=== PATIENT | female | born 1995 | race Caucasian/White ===

== ENCOUNTER 2016-06-16 11:55 | Outpatient (CLI) ==
[2015-12-03 03:26] VITALS: BMI 34.4
[2016-06-16 12:10] LABS: BASOPHILS % (AUTO) 0.3 % (0.0-3.0); EOSINOPHILS # (AUTO) 0.1 K/ul (0.0-0.7); EOSINOPHILS % (AUTO) 1.9 % (0.0-7.0); HEMATOCRIT 42.9 % (37.0-47.0); IMMATURE GRANULOCYTE % (AUTO) 0.1 % (0.0-5.0); LYMPHOCYTES % (AUTO) 29.7 (10.0-50.0); MEAN CORPUSCULAR HEMOGLOBIN 28.6 pg (27.0-31.0); MEAN CORPUSCULAR HGB CONC 32.6 (31.8-35.4); MEAN CORPUSCULAR VOLUME 87.7 fl (81.0-99.0); MONOCYTES # (AUTO) 0.4 K/uL (0.4-2.0); MONOCYTES % (AUTO) 5.1 (0-10); NEUTROPHILS # (AUTO) 4.3 K/ul (2.0-6.9); NEUTROPHILS % (AUTO) 62.9; PLATELET COUNT 259 10^3/uL (140-440); RED BLOOD COUNT 4.89 10^6/ul (4.20-5.40); WHITE BLOOD COUNT 6.81 K/ul (4.6-10.2)
[2016-06-16 12:50] LABS: ALBUMIN 3.5 g/dL (3.7-5.6); ANION GAP 15.5; BILIRUBIN,TOTAL 0.73 mg/dL (0.60-1.40); BUN/CREATININE RATIO 11.11; CALCIUM 9.2 mg/dL (8.2-10.2); CREATININE 0.72 mg/dL (0.60-1.30); POTASSIUM 4.5 mmol/L (3.5-5.10)
== END 2016-06-16 11:56 | disposition home or self-care (01) ==
LOC: LAB 11:55
PROVIDERS: ATTEND Emergency Medicine
DX: R42 Dizziness and giddiness (principal)
CPT/HCPCS: 36415; 80053; 84443; 85025

== ENCOUNTER 2017-02-02 09:59 | Outpatient (CLI) ==
[2015-12-03 03:26] VITALS: BMI 34.4
--- NOTE | 2017-02-02 11:34 | US ---
EXAM: Ultrasound abdomen complete. HISTORY: Left-sided abdominal pain TECHNIQUE: Ultrasound and limited doppler evaluation of the enitre abdomen was performed. COMPARISON: Abdominal ultrasound 07/20/2015 FINDINGS: The liver is increased in echogenicity and measures 16.5 cm in length. The portal vein is patent. The gallbladder has been removed. Common bile duct measures 0.8 cm in diameter. The pancr eas is unremarkable. The aorta and IVC are unremarkable. The spleen is normal in echogenicity and measures enlarged at 14 cm in length. The right kidney measures 10.6 x 4.1 x 4.7 cm with cortical thickness of 1.1 cm. There is normal ec hogenicity and Doppler flow. There is no visualized stone, cyst or hydronephrosis. The left kidney measures 10.0 x 3.7 x 4.3 cm with renal cortical thickness of 1.0 cm. There is nor mal echogenicity and color Doppler flow. There is no stone, cyst or hydronephrosis. IMPRESSION: 1. The spleen measures enlarged. 2. The gallbladder has been removed. 3. Increased echogenicity of the liver suggestive of hepatic steatosis.
== END 2017-02-02 10:00 | disposition home or self-care (01) ==
LOC: RAD 09:59
PROVIDERS: ATTEND Internal Medicine
DX: R10.12 Left upper quadrant pain (principal); R10.32 Left lower quadrant pain

== ENCOUNTER 2018-07-25 14:55 | Outpatient (CLI) ==
[2015-12-03 03:26] VITALS: BMI 34.4
--- NOTE | 2018-07-26 08:32 | MRI ---
EXAM: MRI lumbar spine without IV contrast. DATE: 25 July 2018. HISTORY: Low back pain. TECHNIQUE: Sagittal and axial T1W and T2W sequences of the lumbar spine along with sagittal IR and c oronal T2W sequences were obtained using 1.2 Eula magnet. No IV contrast. COMPARISON: Abnormal ultrasound 02 February 2017. FINDINGS: There are five [id number] lumbar vertebra. A 9 degrees leftward curvature of the lum bar spine is present, with the apex of curvature at L3-4. A 2 mm retrolisthesis of L4 relative to L5 and 2 mm retrolisthesis of L5 relative to S1 are observed. No other subluxation, acute fracture, os seous malignancy, or pars interarticularis defect is demonstrated. Lumbar vertebra are normal in hei ght. Bone marrow signal is normal. Disc desiccation without significant disc space narrowing is see n at L4-5. L5-S1 intervertebral disc is borderline vs slightly narrow in height. No acute sacral fr acture or stress reaction is evident. SI joints are unremarkable. Conus medullaris terminates at L1 . Visible spinal cord is normal. No retroperitoneal lymphadenopathy, paraspinal mass, or aortic aneurysm is detected. Paraspinal musc ulature is symmetric bilaterally. The visible portions of the liver, spleen, adrenal glands and kidn eys reveal no abnormality. Pancreatic head measures proximally 3.4 cm AP, and has a somewhat lobular contour superiorly. However, pancreas is not fully included in the scan plane. Visible bowel loops reveal no abnormality. Segmental analysis: T11-12: Normal. T12-L1: Normal. L1-2: Normal. L2-3: Minor posterior to foraminal disc bulge and dorsal epidural fat cause mild central canal steno sis and minor/mild bilateral foraminal encroachment. L3-4: Minor posterior to foraminal disc bulge, dorsal epidural fat, and minor facet arthropathy caus e moderate central canal stenosis and minor/mild bilateral foraminal stenoses. L4-5: Small concentric disc bulge, superimposed midline disc protrusion (3.3 mm AP x 12 mm transvers e) and minor facet arthropathy cause marked central canal stenosis, moderate right foraminal stenosis , and mild/moderate left foraminal stenosis. L5-S1: Minor retrolisthesis of L5, pseudodisc bulge, and minor facet arthropathy cause moderate cent ral canal stenosis and minor left foraminal encroachment. IMPRESSIONS: 1. Lumbar spine minor leftward curvature, minor facet arthropathy, and multilevel DDD. 2. Multilevel central stenoses ( L2-3: Mild. L3-4: Moderate. L4-5: Marked. L5-S1: Moderate). 3. Multilevel lumbar foraminal stenoses, especially bilateral L4-5. Unexpected findin. Pancreatic head is prominent in AP dimension ( 3.4 cm) and somewhat lobular. Correlation with clinical symptoms is recommended. Dedicated CT scan or MRI of the pancreas without/ with IV contrast is recommended.
== END 2018-07-25 14:56 | disposition home or self-care (01) ==
LOC: RAD 14:55
PROVIDERS: ATTEND Internal Medicine
DX: M54.5 Low back pain (principal)

== ENCOUNTER 2018-07-31 08:05 | Outpatient (CLI) ==
[2015-12-03 03:26] VITALS: BMI 34.4
--- NOTE | 2018-08-01 13:16 | MRI ---
EXAM: MRI abdomen without and with contrast/MRCP HISTORY: Lobular pancreas, prominent pancreatic head TECHNIQUE: Multiplanar, multisequence without and following the administration of intravenous Dotare m, 20 mL using a dynamic postcontrast enhanced protocol. MRCP is acquired with 3-D volume rendered i mages of the biliary tree. COMPARISON: MRI lumbar spine from 07/25/2018 and abdominal sonogram from 02/02/2017 FINDINGS: The heart size is normal. No pericardial or pleural effusions are appreciated. There is diffuse loss of signal within the hepatic parenchyma on the [id number] images as compared to the in-phase images. No hepatic masses are evident. The portal and hepatic veins are patent. Th e gallbladder is surgically absent. There is no biliary dilatation. The common bile duct is approxi mately 2.6 mm in diameter and is free of intraluminal filling defects. No pancreatic divisum is evid ent. The pancreas has normal signal and enhancement. No pancreatic masses are evident. The adrenal glands are normal. The spleen has normal signal. The spleen is mildly enlarged up to 13.8 cm. The kidneys have normal size and signal intensity. The ureters have normal caliber. The abdominal a cristian has normal caliber and flow signal. The visible intestines have normal signal caliber. No lymp hadenopathy or ascites are evident. The bone marrow signal intensity is normal. IMPRESSION: 1. Diffuse hepatic steatosis. 2. Previous cholecystectomy without biliary dilatation. 3. Normal pancreas. 4. Mild splenomegaly (13.7 cm).
== END 2018-07-31 08:06 | disposition home or self-care (01) ==
LOC: RAD 08:05
PROVIDERS: ATTEND Internal Medicine
DX: K86.2 Cyst of pancreas (principal); K86.89 Other specified diseases of pancreas
CPT/HCPCS: 36415; 82565

== ENCOUNTER 2018-08-16 13:00 | Outpatient (RCR) ==
[2015-12-03 03:26] VITALS: BMI 34.4
--- NOTE | 2018-08-09 15:32 | RS.OPPTEV2 ---
Date of Note: 08/08/18 Visit #: 1 Number of visits approved by Insurance: n/a Date of Evaluation: 08/08/18 Payer Source: Insurance Surgery Performed?: No Treatment Diagnosis: low back pain with radiculopathy History of Condition/Mechanism of Injury:: pt with hx of back pain for a few years. No definite injury. Prior Level of Function.....Patient was independent with: ADL's, Self Care, Caregiving, Ambulation/Mobility, Community Integration/Access Level of Function: pt is not currently working Functional Limitations: Sleep, Lifting, Bending, Squatting, Ambulation, Community Access/Integration Current Subjective/complaints:: pt reports pain began getting worse a few months ago. States pain keeps her awake at night. Treatment Side (optional): N/A *Precautions: n/a Medical History Medical History: Hypertension Surgical History: Tonsillectomy Surgical History Comments:: ankle sx x 3 on L Smoking Status: Never smoker Diagnostic Testing/Imaging:: MRI 07/25/18: lumbar spine minor leftward curvature , mi face arthropathy and multilevel DDD, multilevel central stenosis (L2-3 mild , L 3-4 mod, L 4-5 marked, L5 S1 mod, mulilevel foraminal stenosis Hx Home Medications: bystolic Patient's Goals: decrease low back pain Pain Assessment - Pain Description Pain Location: low back pain radiating into BLE R worse than L Pain Description: Radiating, Sharp, Aching Current Pain Intensity: 5/10 Functional Outcome Measure Oswestry LBP: 29 - G Codes & Severity Modifier G Codes & Modifier: n/a Source of G Code score: n/a Observation - Observation Inspection: pt presents with tightness B hamstring R worse than L and B tight piriformis L worse than R Posture: Forward Head, Rounded Shoulders, Decreased Lumbar Lordosis Handedness: Right Gait - Gait Pattern Gait Comments: pt amb with guarded posture, General Range of Motion: BUE WFL's. BLE WFL'a Muscle Strength: BUE 5/5. BLE 5/5 - ROM Lumbar Flexion: Hand reach to Mid-Thighs Sidebending to Left: Reach to Lateral Joint Line Sidebending to Right: Reach to Lateral Joint Line Lumbar Spine ROM Limitations: Soft Tissue Tightness, Muscle Weakness, Pain Comments: pt with limited lumbar flex and limited L lat flex - Strength Trunk Extension: 4 Good Trunk Flexion: 4- Good- Trunk Lateral Flexion: 4- Good- - Special Tests ISIS Test: Negative Left, Negative Right SLR Test: Positive Right SI Joint Distraction: Negative Palpation Palpation Findings: Tenderness, Muscle Guarding Comments:: muscle guarding noted to B lumbar paraspinals R worse than L. Sensation - Sensation Right Upper Extremity: Intact/Normal Left Upper Extremity: Intact/Normal Right Lower Extremity: Intact/Normal Left Lower Extremity: Intact/Normal Sensation Description: Within Normal Limits Balance - Sitting Balance Static Sitting Balance: Normal Dynamic Sitting Balance: Normal - Standing Balance Static Standing Balance: Good Dynamic Standing Balance: Good - Treatment Modality: Electrical Stim Unattended Parameters/Method Applied: IFC x 20 mins at 15ma Treatment Area: R lumbar area Patient Position: Left Sidelying - Heat/Cryotherapy Treatment: Hot Pack Comments:: lumbar spine Interventions - Exercise/Activities/Manual Therapy Exercises/Activities: pt performed isometric hip add, pelvic tilt, hamstring stretch, piriformis stretch Manual Therapy: n/a HOME EXERCISE PROGRAM: pt given written HEP including isometric hip add, pelvic tilt, hamstring stretch, piriformis stretch - Charges Timed Code Treatment Minutes: 41 Total Treatment Time: 62 Procedures billed for this date of service:: eval low, estim unattended, hot pack EVALUATION COMPLEXITY LEVEL EVALUATION COMPLEXITY LEVEL: HISTORY: Low, EXAM OF BODY SYSTEMS: Medium, CLINICAL PRESENTATION: Low, CLINICAL DECISION MAKING: Low Assessment Assessment: pt presents with LBP radiating into BLE R worse than L. With increased muscle tightness B hamstring and piriformis, pt with muscle guarding and tenderness noted in R lumbar area. Patient Education: Home Exercise Program, Education of Plan of Care Rehab Potential: Good Short Term Goals Goal #1: pt independent with initial HEP Goal to be met by: 08/29/18 Goal #2: pt with decreased tightness B hamstring and piriformis Goal to be met by: 08/29/18 Goal #3: Decreased pain rate < 5/10 Goal to be met by: 08/29/18 Goal #4: Lumbar ROM WFL's Goal to be met by: 08/29/18 [facility] Goals Goal #1: pt with no reports of radicular symptoms BLE Goal to be met by: 09/19/18 Goal #2: pt report increased ability to perform normal daily activities w less pain Goal to be met by: 09/19/18 Goal #3: pt able to sleep >4 hours uninterrupted from pain Goal to be met by: 09/19/18 Plan - Treatment to be Provided Procedures: Therapeutic Exercises, Manual Therapy, Massage, Patient Education Modalities: Electrical Stimulation, Ultrasound/Phonophoresis, Cryotherapy, Hot Packs, Mechanical Traction - Treatment Plan Frequency: 2-3x a week Duration: 6 weeks Dates of [facility] Goals: 09/19/18 Expiration date of current Insurance Approval:: n/a - Treatment Code (1) Lumbar back pain with radiculopathy affecting lower extremity Code(s): M54.16 - RADICULOPATHY, LUMBAR REGION (2) DDD (degenerative disc disease), lumbar Code(s): M51.36 - OTHER INTERVERTEBRAL DISC DEGENERATION, LUMBAR REGION (3) Central spinal stenosis Code(s): M48.00 - SPINAL STENOSIS, SITE UNSPECIFIED (4) Muscle tightness Code(s): M62.89 - OTHER SPECIFIED DISORDERS OF MUSCLE
--- NOTE | 2018-08-12 16:16 | RS.OPPTDN ---
Subjective Date of Note: 08/12/18 Visit #: 2 Number of visits approved by Insurance: n/a Date of Evaluation: 08/08/18 Payer Source: Insurance Treatment Diagnosis: low back pain with radiculopathy Current Subjective/complaints:: Patient reports pain in the lowback continues. She reports pain increases with sitting and has increased with walking today. *Precautions: n/a Pain Assessment - Pain Description Pain Location: lowback Current Pain Intensity: 7/10 - Treatment Modality: Electrical Stim Unattended Parameters/Method Applied: [id number] HVGC to 125p.v. with 4 large pads cross current to the bilateral lumbar paraspinals and S-I joints with HP prior to EX. Patient Position: Supine - Heat/Cryotherapy Treatment: Hot Pack (with Estim ) Interventions - Exercise/Activities/Manual Therapy Exercises/Activities: Assisted stretching of bilateral hamstrings, SKTC, and piriformis. Isometric hip add and pelvic tilts. Discussed different positions for hamstring stretching. Total minutes of Exercise: 15mins Manual Therapy: n/a HOME EXERCISE PROGRAM: pt given written HEP including isometric hip add, pelvic tilt, hamstring stretch, piriformis stretch - Charges Timed Code Treatment Minutes: 15mins Total Treatment Time: 38mins Procedures billed for this date of service:: HP, Estim unattended, EX Assessment: Patient with pain that is limiting her mobility with daily activities. She is attentive to instruction and appears motivated to progress exercise. Patient Education: Education of diagnosis, Body/Joint mechanics, Home Exercise Program, Home Safety, Activity Modification Patient demonstrates compliance with HEP?: Yes Short Term Goals Goal #1: pt independent with initial HEP Goal to be met by: 08/29/18 Progress towards Goal:: Progressing Goal #2: pt with decreased tightness B hamstring and piriformis Goal to be met by: 08/29/18 Goal #3: Decreased pain rate < 5/10 Goal to be met by: 08/29/18 Goal #4: Lumbar ROM WFL's Goal to be met by: 08/29/18 [facility] Goals Goal #1: pt with no reports of radicular symptoms BLE Goal to be met by: 09/19/18 Goal #2: pt report increased ability to perform normal daily activities w less pain Goal to be met by: 09/19/18 Goal #3: pt able to sleep >4 hours uninterrupted from pain Goal to be met by: 09/19/18 Plan Dates of [facility] Goals: 09/19/18 Expiration date of current Insurance Approval:: 09/19/18 PLAN: Continue modalities and progress exercise to reduce pain and increase functional activity level.
--- NOTE | 2018-08-14 16:11 | RS.OPPTDN ---
Subjective Date of Note: 08/14/18 Visit #: 3 Number of visits approved by Insurance: pending Date of Evaluation: 08/08/18 Payer Source: Insurance Treatment Diagnosis: low back pain with radiculopathy Current Subjective/complaints:: Patient reports back pain is high again today. She does report doing HEP and tolerating exercise better. *Precautions: n/a Pain Assessment - Pain Description Pain Location: lowback and S-I region Pain Description: Aching Current Pain Intensity: 7-8/10 - Treatment Modality: US with ES (Comb.) Parameters/Method Applied: [id number] US at 1.5w/cm2 and Estim 10-12p.v. to the bilateral lumbar paraspinals and S-I joints prior to EX. Patient Position: Left Sidelying - Heat/Cryotherapy Treatment: Hot Pack ([id number] to the lowback and hips prior to USCOM. patient in supine. ) Interventions - Exercise/Activities/Manual Therapy Exercises/Activities: Assisted stretching of bilateral hamstrings, SKTC, and piriformis. Limited LTR stretch. Isometric hip add and pelvic tilts. Isometric hip flexion. Total minutes of Exercise: 15mins Manual Therapy: n/a HOME EXERCISE PROGRAM: pt given written HEP including isometric hip add, pelvic tilt, hamstring stretch, piriformis stretch - Objective Findings Observations,measurements,etc.: Demos increase in hamstring flexibility and ability to tolerate stretch. - Charges Timed Code Treatment Minutes: 29mins Total Treatment Time: 49mins Procedures billed for this date of service:: HP, USCOM, EX Assessment: Patient continues to have a high pain rating, but is tolerating stretching and has increased hamtring flexibility today. Patient Education: Body/Joint mechanics, Home Exercise Program Patient demonstrates compliance with HEP?: Yes Short Term Goals Goal #1: pt independent with initial HEP Goal to be met by: 08/29/18 Progress towards Goal:: Progressing Goal #2: pt with decreased tightness B hamstring and piriformis Goal to be met by: 08/29/18 Progress towards Goal:: Progressing Goal #3: Decreased pain rate < 5/10 Goal to be met by: 08/29/18 Goal #4: Lumbar ROM WFL's Goal to be met by: 08/29/18 [facility] Goals Goal #1: pt with no reports of radicular symptoms BLE Goal to be met by: 09/19/18 Goal #2: pt report increased ability to perform normal daily activities w less pain Goal to be met by: 09/19/18 Goal #3: pt able to sleep >4 hours uninterrupted from pain Goal to be met by: 09/19/18 Plan Dates of [facility]iary Goals: 09/19/18 Expiration date of current Insurance Approval:: 09/19/18 PLAN: Continue modalities and progress exercise to reduce pain and increase patients functional activity level.
--- NOTE | 2018-08-16 15:08 | RS.OPPTDN ---
Subjective Date of Note: 08/16/18 Visit #: 4 Number of visits approved by Insurance: na Date of Evaluation: 08/08/18 Payer Source: Insurance Treatment Diagnosis: low back pain with radiculopathy Current Subjective/complaints:: Patient reports no improvment in back pain with treatment and exercise. She states she is afraid she is actually getting worse. She reports walking now causes an increase in back and bilateral LE pain. She agrees to contact physician for a follow-up and hold PT at this time due to lack of progress. *Precautions: n/a Pain Assessment - Pain Description Pain Location: lowback and bilateral LE's Current Pain Intensity: 8/10 - Heat/Cryotherapy Treatment: Hot Pack ([id number] to the lowback prior to EX. patient in supine. ) Interventions - Exercise/Activities/Manual Therapy Exercises/Activities: Assisted stretching of bilateral hamstrings, SKTC, and piriformis. Limited LTR stretch. Isometric hip add and isometric ankle inversion. Alt hip flexion in hook-lying. Pelvic tilts. Isometric hip flexion. Total minutes of Exercise: 20mins Manual Therapy: n/a HOME EXERCISE PROGRAM: pt given written HEP including isometric hip add, pelvic tilt, hamstring stretch, piriformis stretch - Charges Timed Code Treatment Minutes: 20mins Total Treatment Time: 44mins Procedures billed for this date of service:: HP, EX Assessment: Patient has consistently attended but reports no improvement in pain. States she feels she may be getting worse. Patient will need to return to her physician for further assessment. 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
== END 2018-08-25 23:59 ==
PROVIDERS: ATTEND Internal Medicine
DX: M54.5 Low back pain (principal); M54.16 Radiculopathy, lumbar region; M51.36 Other intervertebral disc degeneration, lumbar region; M48.00 Spinal stenosis, site unspecified; M62.89 Other specified disorders of muscle

== ENCOUNTER 2019-01-24 10:00 | Outpatient (RCR) ==
[2015-12-03 03:26] VITALS: BMI 34.4
--- NOTE | 2018-12-31 09:12 | RS.OPPTEV2 ---
Date of Note: 12/30/18 Visit #: 1 Number of visits approved by Insurance: n/a Date of Evaluation: 12/30/18 Payer Source: Insurance Surgery Performed?: Yes (L4-L5 laminectomy 12/02/18) Treatment Diagnosis: low back pain, s/p lumbar laminectomy History of Condition/Mechanism of Injury:: pt with hx of LBP for several years. No definite injury. pt underwent L4-L5 lumbar laminectomy on 12/02/18. 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 Treatment Side (optional): N/A *Precautions: n/a Medical History Medical History: Hypertension Surgical History: Tonsillectomy Surgical History Comments:: ankle sx x 3 on L Smoking Status: Never smoker Hx Home Medications: pt unsure of name of blood pressure medication, colestid, pantoprazole, prednisone Patient's Goals: get stronger Pain Assessment - Pain Description Pain Location: LBP Pain Description: Tightness Current Pain Intensity: 1 Functional Outcome Measure Oswestry LBP: 8 - G Codes & Severity Modifier G Codes & Modifier: n/a Source of G Code score: n/a Observation - Observation Inspection: pt with tightness noted in B hamstrings. Posture: Forward Head, Rounded Shoulders, Increased Thoracic Kyphosis Handedness: Right Gait - Gait Pattern General Gait Pattern Observation: No Deviations/Normal General Range of Motion: BUE WFL's. BLE WFL's Muscle Strength: BUE 5/5. BLE 5/5 - ROM Lumbar Flexion: Hand reach to patellae Sidebending to Left: Reach to Lateral Joint Line Sidebending to Right: Reach to Lateral Joint Line Lumbar Spine ROM Limitations: Soft Tissue Tightness, Muscle Weakness Comments: pt with min discomfort with lumbar ext. - Strength Trunk Extension: 4 Good Trunk Flexion: 4- Good- Trunk Lateral Flexion: 4- Good- - Special Tests ISIS Test: Negative Left, Negative Right SLR Test: Negative Left, Negative Right Seated Dural Stretch Test: Negative Left Palpation Palpation Findings: Tenderness Comments:: tenderness noted in area of incision L4-L5 Sensation - Sensation Right Upper Extremity: Intact/Normal Left Upper Extremity: Intact/Normal Right Lower Extremity: Intact/Normal Left Lower Extremity: Intact/Normal Balance - Sitting Balance Static Sitting Balance: Normal Dynamic Sitting Balance: Normal - Standing Balance Static Standing Balance: Normal Dynamic Standing Balance: Normal Interventions - Exercise/Activities/Manual Therapy Exercises/Activities: pt received B LE hamstring stretch, isometric hip add, resisted hip abd with green theraband, pelvic tilts x 5 reps. Manual Therapy: n/a HOME EXERCISE PROGRAM: pt given written HEP including pelvic tilt, isometric hip add, resisted hip abd, hamstring stretch. - Charges Timed Code Treatment Minutes: 43 Total Treatment Time: 54 Procedures billed for this date of service:: eval low, ex EVALUATION COMPLEXITY LEVEL EVALUATION COMPLEXITY LEVEL: HISTORY: Low, EXAM OF BODY SYSTEMS: Low, CLINICAL PRESENTATION: Low, CLINICAL DECISION MAKING: Low Assessment Assessment: pt presents with LBP s/p lumbar laminectomy 11/2018. pt with tightness in B hamstring as well as pain in area of lumbar incision. pt also with decreased lumbar ROM. Feel pt would benefit from skilled PT for stretching and strengthening to improve flexibility and decrease pain. Patient Education: Home Exercise Program, Education of Plan of Care Rehab Potential: Good Short Term Goals Goal #1: pt independent with initial HEP Goal to be met by: 01/10/19 Goal #2: pt with decreased tightness B hamstring Goal to be met by: 01/10/19 Goal #3: Decreased pain rate < 2/10 with activity Goal to be met by: 01/10/19 Goal #4: Lumbar ROM WFL's Goal to be met by: 01/10/19 Chief Digital Officer Goals Goal #1: pt report able to walk 30 mins for ex without pain. Goal to be met by: 01/24/19 Goal #2: pt report increased ability to perform normal daily activities w less pain Goal to be met by: 01/24/19 Goal #3: pt report low back pain 0 at rest with no radicular symptoms Goal to be met by: 01/24/19 Plan - Treatment to be Provided Procedures: Therapeutic Exercises, Manual Therapy, Massage, Patient Education Modalities: Electrical Stimulation, Ultrasound/Phonophoresis, Cryotherapy, Hot Packs - Treatment Plan Frequency: 2 X week Duration: 4 weeks Dates of Chief Digital Officer Goals: 01/24/19 Expiration date of current Insurance Approval:: n/a - Treatment Code (1) Low back pain Code(s): M54.5 - LOW BACK PAIN Qualifiers: Chronicity: unspecified Back pain laterality: unspecified Sciatica presence: without sciatica Qualified Code(s): M54.5 - Low back pain (2) Status post lumbar laminectomy Code(s): Z98.89 - OTHER SPECIFIED POSTPROCEDURAL STATES * DO NOT USE * (3) Muscle tightness Code(s): M62.89 - OTHER SPECIFIED DISORDERS OF MUSCLE
--- NOTE | 2019-01-03 10:12 | RS.CXNS ---
Date of scheduled appointment: 01/03/19 Type: Cancel Reason for Cancel/NS: Called ,sick today.
--- NOTE | 2019-01-06 11:05 | RS.OPPTDN ---
Subjective Date of Note: 01/06/19 Visit #: 2 Number of visits approved by Insurance: na Date of Evaluation: 12/30/18 Payer Source: Insurance Treatment Diagnosis: low back pain, s/p lumbar laminectomy Current Subjective/complaints:: atientreports very minimal pain currently ,but does reports it elevates ,dependent upon how long she is on her feet. *Precautions: n/a Pain Assessment - Pain Description Pain Location: lumbar Pain Description: Dull, Aching Pain Description: minimal Current Pain Intensity: not rated - Treatment Modality: Ultrasound Parameters/Method Applied: 10 mins. @ 1.5 w/cm2,cont. mode to lumbar. - Heat/Cryotherapy Treatment: Hot Pack (20 mins. prior to US ) Interventions - Exercise/Activities/Manual Therapy Exercises/Activities: 20 mins. total ,of HEP review,then 2/10 pelvic tilts,SKTC, DKTC ,90/90 hamstring stretches .SLR x 3 reps each to 55 degrees to assess pain /no pain. Total minutes of Exercise: 20 Manual Therapy: n/a Total minutes of Manual Therapy: 0 HOME EXERCISE PROGRAM: pt given written HEP including pelvic tilt, isometric hip add, resisted hip abd, hamstring stretch. - Charges Timed Code Treatment Minutes: 20 Total Treatment Time: 40 Procedures billed for this date of service:: hp,US,ex 1 Assessment: Patient reports dull ache with SLR on L but none on the R .She has good return demo of each exerciseShe has moderate hamstring tightness ,but responds well to stretches. Patient Education: Education of diagnosis, Body/Joint mechanics, Home Exercise Program, Home Safety, Activity Modification, Education of Plan of Care Patient demonstrates compliance with HEP?: Yes Short Term Goals Goal #1: pt independent with initial HEP Goal to be met by: 01/10/19 Progress towards Goal:: Progressing Goal #2: pt with decreased tightness B hamstring Goal to be met by: 01/10/19 Goal #3: Decreased pain rate < 2/10 with activity Goal to be met by: 01/10/19 Progress towards Goal:: Progressing Goal #4: Lumbar ROM WFL's Goal to be met by: 01/10/19 Progress towards Goal:: Progressing [facility] Goals Goal #1: pt report able to walk 30 mins for ex without pain. 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 skilled PT to reduce /eliminate LBP,strengthen the core for stability of the spine.
--- NOTE | 2019-01-10 11:03 | RS.OPPTDN ---
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 *Precautions: n/a Pain Assessment - Pain Description Pain Location: lumbar Pain Description: Dull, Aching Current Pain Intensity: 0 Worst Pain Intensity: 2-3 yesterday - Treatment Modality: Ultrasound Parameters/Method Applied: 10 mins. @ 1.5 w/cm2,cont. mode to lumbar - Heat/Cryotherapy Treatment: Hot Pack (20 mins. prior to US and ex) Interventions - Exercise/Activities/Manual Therapy Exercises/Activities: 20 mins. total ,of HEP review,then 2/10 pelvic tilts,SKTC, DKTC ,90/90 hamstring stretches .SLR x 5 reps each to 55 degrees Total minutes of Exercise: 20 Manual Therapy: n/a Total minutes of Manual Therapy: 0 HOME EXERCISE PROGRAM: pt given written HEP including pelvic tilt, isometric hip add, resisted hip abd, hamstring stretch. - Charges Timed Code Treatment Minutes: 30 Total Treatment Time: 50 Procedures billed for this date of service:: hp,US,ex Assessment: Progressing well,has no elevation of back pain during exercises .She has minimal stretch discomfort in hamstrings.She is attentive and motivated to improve .She understands to do all exercises in PAIN FREE ROM. Patient Education: Education of diagnosis, Body/Joint mechanics, Home Exercise Program, Home Safety, Activity Modification, Education of Plan of Care Patient demonstrates compliance with HEP?: Yes Short Term Goals Goal #1: pt independent with initial HEP Goal to be met by: 01/10/19 Progress towards Goal:: Progressing Goal #2: pt with decreased tightness B hamstring Goal to be met by: 01/10/19 Progress towards Goal:: Progressing Goal #3: Decreased pain rate < 2/10 with activity Goal to be met by: 01/10/19 Progress towards Goal:: Progressing Goal #4: Lumbar ROM WFL's Goal to be met by: 01/10/19 Progress towards Goal:: Progressing Senior Living Goals Goal #1: pt report able to walk 30 mins for ex without pain. Goal to be met by: 01/24/19 Goal #2: pt report increased ability to perform normal daily activities w less pain Goal to be met by: 01/24/19 Goal #3: pt report low back pain 0 at rest with no radicular symptoms Goal to be met by: 01/24/19 Plan Dates of Senior Living Goals: 01/24/19 Expiration date of current Insurance Approval:: 01/24/19 PLAN: Cont. skilled PT to eliminate LBP,return to PLOF.
--- NOTE | 2019-01-13 09:24 | RS.CXNS ---
Date of scheduled appointment: 01/13/19 Type: Cancel Reason for Cancel/NS: sick
--- NOTE | 2019-01-17 11:18 | RS.OPPTDN ---
Subjective Date of Note: 01/17/19 Visit #: 4 Number of visits approved by Insurance: na Date of Evaluation: 12/30/18 Payer Source: Insurance Treatment Diagnosis: low back pain, s/p lumbar laminectomy Current Subjective/complaints:: Patient repor some R sidedleg pain down to the knee a couple of days ago. *Precautions: n/a Pain Assessment - Pain Description Pain Location: lumbar and R hip Pain Description: Radiating, Dull, Aching Current Pain Intensity: 0 currently Other Comments regarding Pain:: 3/10 when the sciatic pain was present earlier in the week - Treatment Modality: Ultrasound Parameters/Method Applied: 10 mins. @ 1.5 w/cm2 , cont. mode to lumbar and R hip area - Heat/Cryotherapy Treatment: Hot Pack (20 mins. prior to US) Interventions - Exercise/Activities/Manual Therapy Exercises/Activities: 20 mins. total ,of HEP review,then patient education and return demo of gentle piriformis stretches in supine then instructed in gravity -assisted IT/piriformis stretches side-lying.10 reps each of 90/90 hamstring stretches. Total minutes of Exercise: 20 Manual Therapy: n/a Total minutes of Manual Therapy: 0 HOME EXERCISE PROGRAM: pt given written HEP including pelvic tilt, isometric hip add, resisted hip abd, hamstring stretch. 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 Patient Education: Body/Joint mechanics, Home Exercise Program, Activity Modification, Education of Plan of Care Patient demonstrates compliance with HEP?: Yes Short Term Goals Goal #1: pt independent with initial HEP Goal to be met by: 01/10/19 Progress towards Goal:: Progressing Goal #2: pt with decreased tightness B hamstring Goal to be met by: 01/10/19 (L progressing ,R side tighter today due to recent R sided sciatica) Progress towards Goal:: Progressing Goal #3: Decreased pain rate < 2/10 with activity Goal to be met by: 01/10/19 Progress towards Goal:: Progressing Goal #4: Lumbar ROM WFL's Goal to be met by: 01/10/19 Progress towards Goal:: Met Bicycle 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 Goal to be met by: 01/24/19 Goal #2: pt report increased ability to perform normal daily activities w less pain Goal to be met by: 01/24/19 Goal #3: pt report low back pain 0 at rest with no radicular symptoms Goal to be met by: 01/24/19 Plan Dates of Bicycle Designer Goals: 01/24/19 Expiration date of current Insurance Approval:: 01/24/19 PLAN: Cont. skilled PT to reduce /eliminate LBP.
--- NOTE | 2019-01-20 09:08 | RS.CXNS ---
Date of scheduled appointment: 01/20/19 Type: Cancel Reason for Cancel/NS: Called ,is sick today.
--- NOTE | 2019-01-24 13:25 | RS.PTSUM ---
Progress Note/Summary Date of Note: 01/24/19 Date of Evaluation: 12/30/18 Number of Visits: 5 Number of visits approved by Insurance: n/a Reporting Period for this Progress Note: 12/30/18-01/24/19 Current Complaints/Gains: pt states that she is hurting a little more on R SI area. States she has slept on the couch the last couple of nights because she saw spiders in her bedroom. pt does not c/o pain in lumbar spine. Objective Measurements/Presentation: pt presents with improved lumbar ROM. pt continues with hamstring and piriformis tightness. pt with leg length discrepancy RLE longer than LLE which was corrected with muscle energy technique. pt with pain in area of R SI joint. 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 Goal to be met by: 01/24/19 Progress towards goal: Not Met Goal #2: pt report increased ability to perform normal daily activities w less pain Goal to be met by: 01/24/19 Progress towards goal: Not Met Goal #3: pt report low back pain 0 at rest with no radicular symptoms Goal to be met by: 01/24/19 Progress towards goal: Not Met - Assessment Assessment of Improvement/Progress: pt has met STG 1, 4. pt has made progress with pain in low back. pt currently c/o pain in R SI joint. pt has been instructed on HEP and stretching and demonstrates understanding. Also discussed proper body mechanics with patient. 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 pt is going to MD on 02/03/19 will await call from patient or new order from MD. pt order was up on 01/24/19. Summary: Patient has made progress towards goals. - Plan Plan: Continue Plan of Care Comments: MD order completed if MD wishes pt to continue will need new order. Frequency: 2 X week Dates of Bituminous Paving Machine Operator Goals: 01/24/19 Expiration date of current Insurance Approval:: n/a
== END 2019-01-25 23:59 | disposition short-term general hospital (02) ==
PROVIDERS: ATTEND Orthopaedic Surgery Orthopaedic Surgery of the Spine
DX: M54.5 Low back pain (principal); Z98.890 Other specified postprocedural states; M62.89 Other specified disorders of muscle